=== PATIENT | female | born 1960 | race Caucasian/White ===

== ENCOUNTER → 2016-06-26 | Outpatient (CLI) | payer OTHER | LOC: HEART 5 14:28 | DX: J44.9 Chronic obstructive pulmonary disease, unspecified (principal) | CPT/HCPCS: 94010 ==

== ENCOUNTER → 2016-06-30 | Outpatient (CLI) | payer OTHER | LOC: RAD 09:31 | DX: Z01.811 Encounter for preprocedural respiratory examination (principal); G47.33 Obstructive sleep apnea (adult) (pediatric); E66.9 Obesity, unspecified; Z87.891 Personal history of nicotine dependence | CPT/HCPCS: 71020 ==

== ENCOUNTER → 2020-05-04 | Outpatient (CLI) | payer OTHER ==
[~2020-05-04] MED LIST: ASPIRIN CHEWABL81 MG PO; KLONOPIN1 MG PO; LYRICA150 MG PO; NITROSTAT0.4 MG SL; NORCO 10-325 T1 EACH PO; NORCO 5-325 TA1 EACH PO; PROTONIX40 MG PO; PROZAC20 MG PO; ULTRAM50 MG PO; VIBRAMYCIN100 MG PO; VITAMIN B-121000 MCG PO; VITAMIN B-650 MG PO; Voltaren Gel 1% TOP; ZANAFLEX 4 MG TA4 MG PO
[2020-05-04 09:55] LABS: HEMOGLOBIN 9.7 gm/dl (12.3-15.3); RED BLOOD COUNT 4.46 M/UL (4.00-5.10); WHITE BLOOD COUNT 5.4 K/UL (4.5-11.0)
[2020-05-04 10:17] LABS: BUN/CREATININE RATIO 13 (0-10)
[2020-05-06 14:12] LABS: CHOLESTEROL, TOTAL 205 mg/dL (100-199); HDL SIZE 9.1 nm (>=9.2); HDL-C 53 mg/dL (>39); HDL-P (TOTAL) 30.8 umol/L (>=30.5); LARGE HDL-P 6.3 umol/L (>=4.8); LDL SIZE 21.6 nm (>20.5); LDL SIZE 21.6 nm (>=20.8); LDL-C 123 mg/dL (0-99); LDL-P 1252 nmol/L (<1000); LP-IR SCORE 51 (<=45); SMALL LDL-P 390 nmol/L (<=527); TRIGLYCERIDES 166 mg/dL (0-149); VLDL SIZE 48.9 nm (<=46.6)
== END ==
LOC: LAB 09:09
PROVIDERS: Emergency Medicine
DX: J20.9 Acute bronchitis, unspecified (principal); I10 Essential (primary) hypertension; K21.9 Gastro-esophageal reflux disease without esophagitis; F41.1 Generalized anxiety disorder; F33.0 Major depressive disorder, recurrent, mild; E78.2 Mixed hyperlipidemia
CPT/HCPCS: 36415; 80053; 80061; 83704; 84443; 84550; 85025

== ENCOUNTER → 2020-05-07 | Outpatient (CLI) | payer OTHER | LOC: EXRD 11:30 | DX: M19.90 Unspecified osteoarthritis, unspecified site (principal); M85.852 Other specified disorders of bone density and structure, left thigh | CPT/HCPCS: 77080 ==

== ENCOUNTER → 2020-12-14 | Outpatient (CLI) | payer OTHER | LOC: EXRD 08:58 | DX: M79.644 Pain in right finger(s) (principal); M54.2 Cervicalgia; M54.16 Radiculopathy, lumbar region; M54.9 Dorsalgia, unspecified; M25.551 Pain in right hip; M25.552 Pain in left hip; M16.0 Bilateral primary osteoarthritis of hip; M19.09 Primary osteoarthritis, other specified site | CPT/HCPCS: 72040; 72070; 72100; 73140; 73522 ==

== ENCOUNTER → 2021-04-17 | Outpatient (CLI) | payer OTHER | LOC: EROP 11:30 | DX: U07.1 COVID-19 (principal); Z23 Encounter for immunization; I10 Essential (primary) hypertension | CPT/HCPCS: M0247; Q0247 ==